=== PATIENT | male | born 1995 | race Caucasian/White ===

== ENCOUNTER 2019-05-28 11:50 | Emergency (ER) | payer OTHER ==
[~2019-05-28] VITALS: Ht 172.7 cm; Wt 63.5 kg
[~2019-05-28 11:50] MED LIST: VISTARIL 25 MG25 M1 PO; ZOLOFT50 MG PO
[2019-05-28 12:00] VITALS: BP 121/58
[2019-05-28] MEDS ORDERED: CYMBALTA60 MG PO (12:04)
[2019-05-28] MEDS ORDERED: TYLENOL WITH CO1 TA1 PO (12:20)
== END 2019-05-28 12:28 | disposition home or self-care (01) ==
LOC: M.ERS 11:50
DX: R10.11 Right upper quadrant pain (principal); F41.9 Anxiety disorder, unspecified; F32.9 Major depressive disorder, single episode, unspecified; Z88.1 Allergy status to other antibiotic agents; Z88.8 Allergy status to other drugs, medicaments and biological substances

== ENCOUNTER 2020-10-29 15:16 | Emergency (ER) | payer OTHER ==
[~2020-10-29] VITALS: Ht 170.2 cm; Wt 59.9 kg
[~2020-10-29 15:16] MED LIST changes: +CYMBALTA60 MG PO; +TYLENOL WITH CO1 TA1 PO
[2020-10-29 15:42] LABS: HEMATOCRIT 44.7 % (42.0-52.0); HEMOGLOBIN 14.9 gm/dL (14.0-18.0); MCH 29.9 pg (26.0-34.0); MCHC 33.3 g/dL (28.0-37.0); MCV 89.7 fL (80.0-100.0); NUCLEATED RBCS 0 /100WBC; PLATELET COUNT* 316 thou/uL (150-400); RBC 4.98 mil/uL (4.50-6.00); RDW-CV 13.3 % (10.5-14.5); WBC 16.3 thou/uL (4.0-11.0)
[2020-10-29 15:51] LABS: CALCIUM 9.1 mg/dL (8.5-10.1); CREATININE 1.4 mg/dL (0.6-1.3); POTASSIUM 3.6 mmol/L (3.5-5.1)
[2020-10-29 15:55] LABS: ALBUMIN 4.5 g/dL (3.4-5.0); TOTAL BILIRUBIN 1.7 mg/dL (<0.1-1.0); TOTAL PROTEIN 8.9 g/dL (6.4-8.2)
[2020-10-29 16:06] LABS: ABSOLUTE NEUTROPHILS 14.3 thou/uL (1.6-8.1)
[2020-10-29 16:07] LABS: PLATELET ESTIMATE ADEQUATE
[2020-10-29] MEDS ORDERED: ONDANSETRON ODT4 MG PO (17:38)
[2020-10-29 17:40] LABS: URINE BILIRUBIN NEGATIVE (Negative); URINE BLOOD NEGATIVE (Negative); URINE CLARITY CLEAR; URINE COLOR YELLOW; URINE GLUCOSE-RANDOM NEGATIVE (Negative); URINE KETONES 1+ (Negative); URINE LEUKOCYTES-REFLEX NEGATIVE (Negative); URINE NITRITE-REFLEX NEGATIVE (Negative); URINE PROTEIN NEGATIVE (Negative); URINE UROBILINOGEN 0.2 E.U./dl (0.2-1.0)
[2020-10-29 17:46] LABS: AMP/METHAMP Negative (Negative); BARBITURATES Negative (Negative); BENZODIAZEPINES Negative (Negative); COCAINE Negative (Negative); METHADONE Negative (Negative); OPIATES Negative (Negative); PCP Negative (Negative); THC POSITIVE (Negative)
[2020-10-29 17:48] VITALS: BP 125/60
== END 2020-10-29 17:49 | disposition home or self-care (01) ==
LOC: M.ERS 15:16
PROVIDERS: Physician Assistant
DX: R10.13 Epigastric pain (principal); R11.2 Nausea with vomiting, unspecified; R19.7 Diarrhea, unspecified; Z88.1 Allergy status to other antibiotic agents; Z88.2 Allergy status to sulfonamides; Z79.899 Other long term (current) drug therapy